=== PATIENT | male | born 1945 | race Caucasian/White ===

== ENCOUNTER 2017-06-04 09:07 | Emergency (ER) | payer OTHER ==
[~2017-06-04] VITALS: Ht 170.2 cm; Wt 80.0 kg
[2017-06-04 09:10] VITALS: BP 163/89; PULSE 85; RESP 16; TEMP 98; O2SAT 98
[2017-06-04] MEDS ORDERED: LIDOCAINE 1%/EPINEPHrine 1:100,000 SOLN 20 ML VIAL INFIL ONE (09:30)
[2017-06-04] MEDS ORDERED: TETANUS/DIPHTHERIA TOXOID ADULT 0.5 ML VIAL IM ONE (09:30)
--- NOTE | 2017-06-04 09:56 | PD ---
HPI Chief Complaint: Laceration/Skin Injury Time Seen by Provider: 09:22 Travel History International Travel<30 days: No Contact w/Intl Traveler<30days: No Traveled to known affect area: No History of Present Illness HPI 72-year-old male presents to the emergency department with acute injury to the distal right thumb from table saw. Patient states he was cutting some wood in his home when his thumb hit the blade. He is currently bandaged and bleeding is controlled upon arrival. Patient is unsure if he may have hit the bone. He is unsure of his last tetanus shot. Pain is 9 out of 10. Patient last ate at 8 AM. He has no other injuries. PFSH Social History Alcohol Use: Yes Tobacco Use: No Substance Use: No Allergies-Medications (Allergen,Severity, Reaction): Coded Allergies: No Known Allergies (Verified Allergy, Unknown, 06/04/17) Reported Meds & Prescriptions Reported Meds & Active Scripts Active Ibuprofen 600 Mg Tab 600 Mg PO Q8H PRN 10 Days Keflex (Cephalexin) 500 Mg Cap 500 Mg PO Q8H 7 Days Review of Systems Except as stated in HPI: all other systems reviewed are Neg General / Constitutional: No: Fever Eyes: No: Visual changes HENT: No: Headaches Cardiovascular: No: Chest Pain or Discomfort Respiratory: No: Shortness of Breath Gastrointestinal: No: Abdominal Pain Genitourinary: No: Dysuria Musculoskeletal: Positive: Pain, No: Myalgias, Arthralgias, Limited ROM Skin: No Rash Neurologic: No: Weakness Psychiatric: No: Depression Endocrine: No: Polydipsia Hematologic/Lymphatic: No: Easy Bruising Physical Exam Narrative GENERAL: Patient is in moderate distress per SKIN: Warm and dry. Normal color. Normal turgor. Patient has a 2 cm jagged linear laceration across the palmar surface of the right distal thumb. It does not involve the tendon or bone by inspection. HEAD: Atraumatic. Normocephalic. EYES: Pupils equal and round. No scleral icterus. No injection or drainage. ENT: No nasal bleeding or discharge. Mucous membranes pink and moist. NECK: Trachea midline. No JVD. CARDIOVASCULAR: Regular rate and rhythm. RESPIRATORY: No accessory muscle use. Clear to auscultation. Breath sounds equal bilaterally. MUSCULOSKELETAL: Extremities without clubbing, cyanosis, or edema. No obvious deformities. NEUROLOGICAL: Awake and alert. No obvious cranial nerve deficits. Motor grossly within normal limits. Five out of 5 muscle strength in the arms and legs. Normal speech. PSYCHIATRIC: Appropriate mood and affect; insight and judgment normal. Data Data Last Documented VS Vital Signs Date Time Temp Pulse Resp B/P (MAP) Pulse Ox O2 Delivery O2 Flow Rate FiO2 06/04/17 09:10 98.0 85 16 163/89 (113) 98 Orders Orders Tetanus/Diphtheria Tox Adult (Tetanus/Di (06/04/17 09:30) Lidocai-Epi 1%-1:100,000 Inj (Xylocaine- (06/04/17 09:30) Finger ([id number]) (06/04/17 09:24) Ice/Cold Pack (06/04/17 09:24) Ibuprofen (Motrin) (06/04/17 10:00) Cephalexin (Keflex) (06/04/17 10:00) MDM Medical Decision Making Medical Screen Exam Complete: Yes Emergency Medical Condition: Yes Differential Diagnosis Table saw injury. Laceration. Need for closure Narrative Course Patient is in stable condition on exam X-ray of the right thumb is ordered. X-ray shows no bony involvement. Tetanus is given IM. Patient is given 800 mg ibuprofen p.o. as well as 500 mg Keflex p.o. Digital block is placed with good anesthetic effect consisting of 4 mL's 1% lidocaine with epi. Laceration is closed. Wound is to be kept covered for the next 2 days. Patient is continued on Keflex 500 mg 3 times daily for 7 days. Patient is continued on ibuprofen 600 mg 3 times daily #30. Patient is to follow-up in 2 days for wound check. Sutures should remain in place for at least 10 days. Diagnosis Primary Impression: Laceration of right thumb without complication Qualified Codes: S61.011A - Laceration without foreign body of right thumb without damage to nail, initial encounter Patient Instructions: Care For Your Stitches (ED), General Instructions Additional Instructions: X-ray shows no bony involvement. Tetanus is given IM. Patient is given 800 mg ibuprofen p.o. as well as 500 mg Keflex p.o. Digital block is placed with good anesthetic effect consisting of 4 mL's 1% lidocaine with epi. Laceration is closed. Wound is to be kept covered for the next 2 days. Patient is continued on Keflex 500 mg 3 times daily for 7 days. Patient is continued on ibuprofen 600 mg 3 times daily #30. Patient is to follow-up in 2 days for wound check. Sutures should remain in place for at least 10 days. Med/Other Pt SpecificInfo: Prescription(s) given, Wound Care Scripts Ibuprofen (Ibuprofen) 600 Mg Tab 600 MG PO Q8H Y for PAIN for 10 Days, #30 TAB 0 Refills Prov: Serafin Loyd MD 06/04/17 Cephalexin (Keflex) 500 Mg Cap 500 MG PO Q8H for Infection for 7 Days, #21 CAP 0 Refills Prov: Serafin Loyd MD 06/04/17 Disposition: 01 DISCHARGE HOME Condition: Stable Anant Cobb Jun 04, 2017 09:56
[2017-06-04] MEDS ORDERED: CEPHALEXIN MONOHYDRATE 500 MG CAP PO ONE (10:00)
[2017-06-04] MEDS ORDERED: IBUPROFEN 800 MG TAB PO ONE (10:00)
--- NOTE | 2017-06-04 10:13 | RADRPT ---
EXAM DATE/TIME: 06/04/2017 09:36 [facility] COMPARISON: No previous studies available for comparison. INDICATIONS : Laceration on anterior portion of right thumb from circular saw. MEDICAL HISTORY : None. SURGICAL HISTORY : None. ENCOUNTER: Initial ACUITY: 1 day PAIN SCORE: 9/10 LOCATION: Right Thumb FINDINGS: There is no acute fracture or dislocation. No radiopaque foreign body is noted. Severe osteoarthritis is noted involving the first carpometacarpal joint. Less severe arthritic changes are noted involvin g the first, second, and third metacarpophalangeal joints. CONCLUSION: 1. No acute fracture or dislocation. 2. No radiopaque foreign body. 3. Severe osteoporosis involving the first carpometacarpal joint and less severe arthritic changes in volving the first, second, and third metacarpophalangeal joints. Shreyas Narvaez MD on June 04, 2017 at 10:08 Board Certified Radiologist. This report was verified electronically.
[2017-06-04] MEDS ORDERED: IBUP-232 PO (10:25)
[2017-06-04] MEDS ORDERED: CEPH-460 PO (10:25)
== END 2017-06-04 10:37 | disposition home or self-care (01) ==
LOC: NEPK 09:07
DX: S61.011A Laceration without foreign body of right thumb without damage to nail, initial encounter (principal); W26.9XXA Contact with unspecified sharp object(s), initial encounter; Y93.89 Activity, other specified; Y92.009 Unspecified place in unspecified non-institutional (private) residence as the place of occurrence of the external cause; Z23 Encounter for immunization
CPT/HCPCS: 12001; 73140; 90471; 90714

== ENCOUNTER 2017-06-06 09:35 | Emergency (ER) | payer OTHER ==
[~2017-06-06] VITALS: Ht 170.2 cm; Wt 76.0 kg
[~2017-06-06 09:35] MED LIST: CEPH-460 PO; IBUP-232 PO
[2017-06-06 09:46] VITALS: BP 130/61; PULSE 66; RESP 17; TEMP 97.6; O2SAT 100
[2017-06-06] MEDS ORDERED: TRAM50TA PO (09:56)
--- NOTE | 2017-06-06 10:00 | PD ---
HPI Chief Complaint: Wound/Suture/Staple Re-Check Time Seen by Provider: 09:49 Travel History International Travel<30 days: No Contact w/Intl Traveler<30days: No Traveled to known affect area: No History of Present Illness HPI 72-year-old male presents emergency department for recheck of a recent laceration to the right palmar surface of the thumb. Patient is currently on ibuprofen 600 mg 4 times daily as well as cephalexin 500 mg 3 times daily. The patient's only complaint is of increased pains especially at night. He is requesting something stronger for pain if possible. Dressing that was placed at repair is still present. He has no other complaints. No known drug allergies. PFSH Past Medical History Medical History: Denies Significant Hx Tetanus Vaccination: < 5 Years Past Surgical History Surgical History: No Previous Surgery Social History Alcohol Use: Yes Tobacco Use: No Substance Use: No Allergies-Medications (Allergen,Severity, Reaction): Coded Allergies: No Known Allergies (Verified Allergy, Unknown, 06/06/17) Reported Meds & Prescriptions Reported Meds & Active Scripts Active Ibuprofen 600 Mg Tab 600 Mg PO Q8H PRN 10 Days Keflex (Cephalexin) 500 Mg Cap 500 Mg PO Q8H 7 Days Review of Systems Except as stated in HPI: all other systems reviewed are Neg General / Constitutional: No: Fever Eyes: No: Visual changes HENT: No: Headaches Cardiovascular: No: Chest Pain or Discomfort Respiratory: No: Shortness of Breath Gastrointestinal: No: Abdominal Pain Genitourinary: No: Dysuria Musculoskeletal: No: Pain Skin: No Rash Neurologic: No: Weakness Psychiatric: No: Depression Endocrine: No: Polydipsia Hematologic/Lymphatic: No: Easy Bruising Physical Exam Narrative GENERAL: Patient appears in mild distress. SKIN: Warm and dry. Normal color. Normal turgor. Wound site appears to be healing well with a small amount of venous bloody drainage. There is no increased erythema or swelling. Dressing is reapplied. HEAD: Atraumatic. Normocephalic. EYES: Pupils equal and round. No scleral icterus. No injection or drainage. ENT: No nasal bleeding or discharge. Mucous membranes pink and moist. Pharynx is clear. Airways patent. NECK: Trachea midline. Supple and nontender. CARDIOVASCULAR: Regular rate and rhythm. RESPIRATORY: No accessory muscle use. Clear to auscultation. Breath sounds equal bilaterally. MUSCULOSKELETAL: Extremities without clubbing, cyanosis, or edema. No obvious deformities. NEUROLOGICAL: Awake and alert. No obvious cranial nerve deficits. Motor grossly within normal limits. Five out of 5 muscle strength in the arms and legs. Normal speech. PSYCHIATRIC: Appropriate mood and affect; insight and judgment normal. Data Data Last Documented VS Vital Signs Date Time Temp Pulse Resp B/P (MAP) Pulse Ox O2 Delivery O2 Flow Rate FiO2 06/06/17 09:46 97.6 66 17 130/61 (84) 100 MDM Medical Decision Making Medical Screen Exam Complete: Yes Emergency Medical Condition: Yes Medical Record Reviewed: Yes Differential Diagnosis Right thumb laceration. Wound check. Pain management. Narrative Course Dressing is removed and wound inspected and appears to be healing well. Wound care is discussed with the patient. Patient to continue ibuprofen and Keflex as previous. Patient is given tramadol 50 mg 1 every 6 hours as needed pain #20. Patient follow-up in 7 days for recheck and suture removal. Diagnosis Primary Impression: Encounter for wound re-check Patient Instructions: Care For Your Stitches (DC), General Instructions Additional Instructions: Wound care is discussed with the patient. Patient to continue ibuprofen and Keflex as previous. Patient is given tramadol 50 mg 1 every 6 hours as needed pain #20. Patient follow-up in 7 days for recheck and suture removal. Med/Other Pt SpecificInfo: Wound Care Scripts Tramadol (Tramadol) 50 Mg Tab 50 MG PO Q6H Y for PAIN, #20 TAB 0 Refills Prov: Serafin Loyd MD 06/06/17 Disposition: 01 DISCHARGE HOME Condition: Stable Anant Cobb Jun 06, 2017 10:00
== END 2017-06-06 10:24 | disposition home or self-care (01) ==
LOC: NEPK 09:35
DX: S61.011D Laceration without foreign body of right thumb without damage to nail, subsequent encounter (principal); X58.XXXD Exposure to other specified factors, subsequent encounter
CPT/HCPCS: 99283